=== PATIENT | male | born 1985 | race African-American/Black ===

== ENCOUNTER → 2016-06-07 | Outpatient (CLI) | payer OTHER ==
--- NOTE | 2016-06-07 10:50 | REP ---
T-SPINE SERIES: Four views. HISTORY: Back pain, shoulder pain. FINDINGS: Thoracic vertebral body heights are preserved. Alignment is normal. Pedicles and posterior elements are intact. There is a minimal levoconvex curvature in the lower thoracic spine. The paravertebral soft-tissue stripes are intact. No soft tissue mass is seen. IMPRESSION: Minimal levoconvex curvature. Otherwise negative thoracic spine series. Signed by Jamel Carmona MD 06/07/2016 01:51 P
--- NOTE | 2016-06-07 10:51 | REP ---
LEFT SHOULDER SERIES: Four views. HISTORY: Left shoulder and back pain. FINDINGS: The left glenohumeral and acromioclavicular joints are normally aligned. No fracture or periarticular soft tissue calcification is seen. No erosive change is seen. IMPRESSION: Negative views of the left shoulder. Signed by Jamel Carmona MD 06/07/2016 01:51 P
--- NOTE | 2016-06-07 10:51 | REP ---
LUMBAR SPINE SERIES: Five views. HISTORY: Back pain. FINDINGS: Lumbar vertebral body heights are preserved. There is mild disc space narrowing at L4-5. There is a bilateral L5 spondylolysis. There is no discernible spondylolisthesis however. Pedicles and posterior elements are otherwise intact. Sacrum and SI joints are unremarkable. Bowel gas pattern is normal. IMPRESSION: Bilateral L5 spondylolysis without evidence of spondylolisthesis. Degenerative disc narrowing at L4-5, mild in degree. Otherwise negative lumbar spine series. Signed by Jamel Carmona MD 06/07/2016 01:51 P
== END ==
LOC: M RAD 09:19
PROVIDERS: ATTEND Surgery
DX: M43.06 Spondylolysis, lumbar region (principal)

== ENCOUNTER → 2016-09-04 | Outpatient (CLI) | payer OTHER ==
[2016-09-04 10:29] LABS: BASO % 0.4 % (0.0-1.0); EOS # 0.4 K/mm3 (0.0-0.50); EOS % 7.5 % (0.0-3.0); LARGE UNSTAINED CELL # 0.1 K/mm3 (0.0-0.4); LARGE UNSTAINED CELL % 1.9 % (0.0-4.0); LYMPH # 1.8 K/mm3 (1.5-6.5); MEAN CORPUSCULAR HEMOGLOBIN 28.5 pg (27.0-33.0); MEAN CORPUSCULAR HGB CONC 32.7 g/dl (32.0-36.5); MONO # 0.3 K/mm3 (0.0-0.8); MONO % 6.2 % (0.0-5.0); NEUTROPHILS # 2.6 K/mm3 (1.8-7.7); PLATELET COUNT, AUTOMATED 210 k/mm3 (150-450); RED CELL DISTRIBUTION WIDTH 12.6 % (11.5-14.5); WHITE BLOOD COUNT 5.1 K/mm3 (4.0-10.0)
[2016-09-04 10:31] LABS: INR 1.02
[2016-09-04 10:47] LABS: ALBUMIN 4.2 GM/DL (3.2-5.2); ALBUMIN/GLOBULIN RATIO 1.05 (1.00-1.93); ALKALINE PHOSPHATASE 76 U/L (45-117); ALT/SGPT 33 U/L (12-78); ANION GAP 6 MEQ/L (8-16); AST/SGOT 13 U/L (15-37); BILIRUBIN,DIRECT 0.3 MG/DL (0.0-0.2); BILIRUBIN,TOTAL 1.1 MG/DL (0.2-1.0); BLOOD UREA NITROGEN 20 MG/DL (7-18); CALCIUM LEVEL 9.5 MG/DL (8.5-10.1); CARBON DIOXIDE LEVEL 30 MEQ/L (21-32); CHLORIDE LEVEL 104 MEQ/L (98-107); CREATININE FOR GFR 1.22 MG/DL (0.70-1.30); GLOMERULAR FILTRATION RATE > 60.0 (>60); GLUCOSE, FASTING 71 MG/DL (70-105); POTASSIUM SERUM 4.5 MEQ/L (3.5-5.1); SODIUM LEVEL 140 MEQ/L (136-145); TOTAL PROTEIN 8.2 GM/DL (6.4-8.2)
--- NOTE | 2016-09-05 01:51 | REP ---
Clinical: Preoperative assessment . Comparison: None . Technique: PA and lateral. Findings: The mediastinum and cardiac silhouette are normal. The lung pa are clear and without acute consolidation, effusion, or pneumothorax. The skeletal structures are intact and normal. Impression: 1. No acute cardiopulmonary process. Signed by Paul Smith MD 09/05/2016 01:42 A
== END ==
LOC: M LAB 09:03
PROVIDERS: ATTEND Surgery
DX: Z01.818 Encounter for other preprocedural examination (principal); Z96.9 Presence of functional implant, unspecified; R68.84 Jaw pain